=== PATIENT | male | born 1950 | race Caucasian/White ===

== ENCOUNTER → 2016-11-18 | Outpatient (CLI) | payer MEDICARE ==
[2014-11-23 15:02] VITALS: BP 133/99
[~2016-11-18] MED LIST: ASPI-482 PO; CIPR500T94 PO; LISI10TA2 PO; MULT-208 PO; OMEP20CA9 PO
--- NOTE | 2016-11-19 14:58 | RAD ---
Indication lung nodule. PET/CT was performed from the skull to the proximal thigh. CT was performed primarily for localization and attenuation purposes as opposed to primary diagnostic purposes. The blood sugar during the examination was 104. 14 mCi of FDG was administered. No prior PET/CT imaging is available. No prior dedicated CT imaging of the chest is available. There has been no recent imaging of the chest. On CT no significant finding is seen in the visualized brain. The neck is unremarkable. There is no significant mediastinal adenopathy. A dominant mass in either lung is not seen although there is a 5 to 6 mm pulmonary nodule in the right upper lobe. This is likely below the threshold of analysis for PET. A few small calcified lymph nodes are noted in the mediastinum. In the abdomen and pelvis there is no significant finding apart from an enlarged prostate. On PET the FDG is physiologically distributed in the visualized brain. No abnormal activity is seen in the neck. The 5 to 6 mm pulmonary nodule in the right lung is not significantly FDG avid but again the size of the nodule is likely too small to accurately characterize with PET. Follow-up CT imaging advised. No definite hypermetabolic mass is seen in the chest. The FDG is physiologically distributed in the abdomen and pelvis. IMPRESSION: There is no significant finding seen on PET/CT. A 5 to 6 mm nodule is seen in the right upper lobe but this is too small to accurately characterize on PET. Follow-up CT imaging advised.
== END | disposition home or self-care (01) ==
LOC: PETSC 14:51
PROVIDERS: ATTEND Internal Medicine Critical Care Medicine
DX: R91.1 Solitary pulmonary nodule (principal)
CPT/HCPCS: 78815; A9552

== ENCOUNTER → 2019-11-21 | Outpatient (CLI) | payer MEDICARE ==
[2014-11-23 15:02] VITALS: BP 133/99
[~2019-11-21] MED LIST changes: +OMEP20CA16 PO; -OMEP20CA9 PO
--- NOTE | 2019-11-22 12:23 | SLEEP ---
DATE OF STUDY: 11/21/2019 SLEEP STUDY ATTENDING PHYSICIAN: Priya Ortega MD The patient is a 69-year-old who weighs 220 pounds with a BMI of 38. The patient's [place] score was 12. The patient underwent split night study performed at [facility]. During the night study, the patient spent 421 minutes in bed and slept for 262 minutes with a low sleep efficiency of 62%. Sleep latency was 12 minutes with a REM latency of 122 minutes. Sleep architecture showed normal stage 1 sleep, increased stage 2 sleep, normal slow wave and slightly reduced REM sleep. During the initial diagnostic portion of the study, the patient slept for 71 minutes. During that time, there were 19 obstructive apneas, 17 hypopneas, no central or mixed apneas. The patient's AHI was 31 per hour with a supine AHI of 50 per hour. REM sleep was not seen during the diagnostic portion. PLMS were seen at index of 30 per hour and 6 per hour caused EEG arousals. EKG monitoring revealed mean heart rate of 72 beats per minute, no arrhythmias observed. Nocturnal oximetry study revealed a mean oxygen saturation of 94% with lowest of 82%. A 9% of time oxygen saturation remained between 80% and 89%. The patient met the criteria for CPAP initiation. It was started at 5 cm water and titrated up to 7 cm water. At the final pressure, the patient slept for 166 minutes. The patient's supine sleep as well as REM sleep. The patient's AHI was reduced to 0 per hour and oxygen saturation remained above 90%. IMPRESSION: 1. Severe obstructive sleep apnea at an AHI of 31 per hour. 2. Nocturnal hypoxia secondary to obstructive sleep apnea, but resolved with CPAP. 3. Moderate periodic limb movements. RECOMMENDATIONS: 1. CPAP at 7 cm water completely eliminated the patient's sleep apnea and should be used on a nightly basis. The patient used a small size full face mask. 2. Follow up in 4-6 weeks to assess compliance with CPAP and to document clinical improvement. 3. Weight loss is strongly advised. 4. Avoid APPLICATION DBA depressants. 5. Cautioned regarding driving until symptoms of sleep apnea resolve with the use of CPAP. 6. PLMS does not need to be treated unless the patient has symptoms of restless legs during the day. NIKKO SIFUENTES MD DR: DIMITRIS/tahira JOB#: [id number] / [id number] PRIYA Bella MD
== END ==
LOC: SLPLAB 18:55
PROVIDERS: ATTEND Family Medicine
DX: G47.33 Obstructive sleep apnea (adult) (pediatric) (principal); R09.02 Hypoxemia; I10 Essential (primary) hypertension
CPT/HCPCS: 95810